=== PATIENT | female | born 1935 | race Caucasian/White ===

== ENCOUNTER 2018-10-09 07:08 | Emergency (ER) | payer OTHER ==
[~2018-10-09] VITALS: Ht 162.6 cm; Wt 61.7 kg
[2018-10-09] MEDS ORDERED: CALCIUM 600 +1 EAC1 PO (07:17)
[2018-10-09] MEDS ORDERED: ASPIR 8181 MG PO (07:17)
[2018-10-09] MEDS ORDERED: GLUCOSAMINE &1 EACH PO (07:18)
[2018-10-09] MEDS ORDERED: UNICOMPLEX M TA1 TA1 PO (07:18)
[2018-10-09] MEDS ORDERED: VOLTAREN GEL 1100 G2 TOP (07:18)
[2018-10-09] MEDS ORDERED: TIMOL 0.5%-BRIM10 ML OPHTHALMIC (07:19)
[2018-10-09] MEDS ORDERED: PROPRANOLOL 1010 MG PO (07:19)
[2018-10-09] MEDS ORDERED: NORFLEX100 MG PO (08:05)
[2018-10-09] MEDS ORDERED: NAPROXEN250 MG PO (08:05)
[2018-10-09] MEDS ORDERED: TRAMADOL 50 MG50 MG PO (08:05)
[2018-10-09 08:28] VITALS: BP 152/51
== END 2018-10-09 08:38 | disposition home or self-care (01) ==
LOC: ER 07:08
DX: G89.29 Other chronic pain (principal); M54.5 Low back pain; M62.830 Muscle spasm of back; Z87.891 Personal history of nicotine dependence